=== PATIENT | male | born 1985 ===

== ENCOUNTER 2022-07-04 09:28 | Day surgery (SDC) | payer BC ==
[~2022-07-04 09:28] MED LIST: Bupivacaine 0.5%/EPINEPHrine 1:200,000 50 ML MDV ONE; Lactated Ringers 1,000 ML IV SCH; Lidocaine 1% with EPINEPHrine 1:100,000 20 ML MDV ONE; Lidocaine 1%/Sod Bicarbonate in NS 8.4% 1 ML Syringe IDERM PRN; Sodium Chloride 0.9% 10 ML Syringe FLUSH PRN; Sodium Chloride 0.9% 10 ML Syringe FLUSH SCH
[2022-07-04] MEDS ORDERED: Rocuronium 50 MG/5 ML Vial ONE ×2 (10:01→11:03)
[2022-07-04] MEDS ORDERED: Propofol 200 MG/20 ML SDV ONE (10:01)
[2022-07-04] MEDS ORDERED: Lidocaine 1% 2 ML ONE (10:01)
[2022-07-04] MEDS ORDERED: fentaNYL 100 MCG/2 ML SDV ONE ×2 (10:01→13:17)
[2022-07-04] MEDS ORDERED: ceFAZolin 2 GM Vial ONE (10:56)
[2022-07-04] MEDS ORDERED: Dexamethasone 4 MG/ML 5 ML MDV ONE (10:59)
[2022-07-04] MEDS ORDERED: Ondansetron 4 MG/2 ML SDV ONE (10:59)
[2022-07-04] MEDS ORDERED: Lidocaine 1% PF 2 ML SDV ONE (11:00)
[2022-07-04] MEDS ORDERED: Midazolam 1 MG/ML 2 ML SDV ONE (11:01)
[2022-07-04] MEDS ORDERED: HYDROmorphone 0.5 MG/0.5 ML Syringe ONE (11:05)
[2022-07-04] MEDS ORDERED: Ketorolac 30 MG/ML SDV ONE (11:20)
[2022-07-04] MEDS ORDERED: Lactated Ringers 1,000 ML IV ONE (11:45)
[2022-07-04] MEDS ORDERED: Sugammadex Sodium 200 MG/2 ML VIAL ONE (11:56)
[2022-07-04] MEDS ORDERED: Ondansetron 4 MG/2 ML SDV IVPUSH PRN (14:09)
[2022-07-04] MEDS ORDERED: HYDROmorphone 0.5 MG/0.5 ML Syringe IVPUSH PRN (14:09)
[2022-07-04] MEDS ORDERED: fentaNYL 100 MCG/2 ML SDV IVPUSH PRN (14:09)
[2022-07-04] MEDS: Acetaminophen/HYDROcodone 325-5 MG Tab PO SCH ×2 (15:08→16:08)
[2022-07-04] MEDS ORDERED: Acetaminophen/HYDROcodone 325-5 MG Tab PO ONE (15:55)
[2022-07-04 16:54] VITALS: BP 128/81; PULSE 74
== END 2022-07-04 16:50 | disposition home or self-care (01) ==
LOC: JD.SDS 09:28
PROVIDERS: ATTEND Surgery
DX: K40.90 Unilateral inguinal hernia, without obstruction or gangrene, not specified as recurrent (principal); I10 Essential (primary) hypertension; Z53.31 Laparoscopic surgical procedure converted to open procedure; Z79.899 Other long term (current) drug therapy
CPT/HCPCS: 49505; A9270; J0690; J1100; J1170; J1885; J2250; J2405; J2704; J3010; J3490; J7120